=== PATIENT | female | born 1995 | race African-American/Black ===

== ENCOUNTER 2018-03-11 07:38 | Emergency (ER) | payer OTHER ==
[~2018-03-11] VITALS: Ht 165.1 cm; Wt 80.0 kg
[2018-03-11 08:07] VITALS: BP 138/80
[2018-03-11] MEDS ORDERED: IBUPROFEN 600MG TABLET PO ONE (08:15)
== END 2018-03-11 08:26 | disposition home or self-care (01) ==
LOC: ER 07:55
DX: S80.01XA Contusion of right knee, initial encounter (principal); M62.830 Muscle spasm of back; V49.9XXA Car occupant (driver) (passenger) injured in unspecified traffic accident, initial encounter; Y93.89 Activity, other specified; Y99.8 Other external cause status; Y92.410 Unspecified street and highway as the place of occurrence of the external cause
CPT/HCPCS: 99283